=== PATIENT | female | born 1950 | race Caucasian/White ===

== ENCOUNTER 2018-12-21 14:25 | Inpatient (IN) | payer MEDICARE, OTHER ==
[2018-12-21] VITALS (10 sets, daily range): BP systolic 88–112; BP diastolic 49–78; BMI 19.5
[~2018-12-21] VITALS: Ht 162.6 cm; Wt 61.4 kg
--- NOTE | ~2018-12-21 | HEMODYNAMI ---
PATIENT:VENANCIO JIMENEZ MEDICAL RECORD: [id number] : 46 LOCATION:[facility] D.2305 ADMISSION DATE: 12/21/18 Generatedon:12/26/201814:15 Patient name: VENANCIO JIMENEZ Patient #: [id number] SSN: : 1950 Date of study: Page: Of Hemodynamic Procedure Report Patient Data Patient Demographics First Name: VENANCIO Gender: Female Last Name: BARBARA : 1950 Patient #: [id number] Age: 68 year(s) Race: Unknown Additional ID: [id number] Contact details Address: [address] [place] [address] State: [place] City: [facility] Zip code: [address] Admission Admission Data Admission Date: 12/21/2018 Admission Time: 16:27 Room #: D.2305 Height (in.): 63.78 BSA: 1.41 (m2) Height (cm.): 162 BMI: 16 (kg/m2) Weight (lbs.): 92.59 Weight (kg.): 42 Lab Results Lab Result Date: 12/26/2018 Lab Result Time: 0:00 Biochemistry Name Units Result Min Max BUN mg/dl 21 --(----)-* 7 18 Creatinine mg/dl 1 --(--*-)-- 0.6 1.3 CBC Name Units Result Min Max Hemoglobin g/dl 12.2 *-(----)-- 13.5 17.5 Procedure Procedure Types Cath Procedure Diagnostic Procedure LHC LHC w/Coronaries Procedure Description Procedure Staff Name Function Jose R Martinez MD Performing Physician Zahira Kennedy RT Monitor Moses Darden RN Nurse Kimber Villa RT Scrub Hemodynamics Rest BSA: 1.41 (m2) O2 Consumption: Estimated: 191.76 (ml/min) O2 Consumption indexed: Estimated:136 (ml/min/m) Pre Cath Intra NCS Post Cath Procedure Log Time Note 13:53:23 Patient Height : 63.78 inches 13:53:28 Patient Weight : 92.59 lbs 13:54:08 Lab Result : Creatinine 1 mg/dl 13:54:08 Lab Result : BUN 21 mg/dl 13:54:08 Lab Result : Hemoglobin 12.2 g/dl 13:54:31 Diagnostic Cath status Elective 13:54:34 Kimber Villa RT(R) sent for patient. Start room use. 13:54:35 Time tracking: Regular hours (M-F 7:00 - 5:00) 13:54:42 Plan of Care:Hemodynamics will remain stable., Cardiac rhythm will remain stable., Comfort level will be maintained., Respiratory function will remain adequate., Patient/ family verbilizes understanding of procedure., Procedure tolerated without complication., Recovers from procedure without complications.. Signature Audit [place] Stage Time Signature Unsigned Intra-Procedure 12/26/2018 Zahira Kennedy 2:15:06 PM RT(R) Signatures Monitor : Zahira Kennedy Signature : RT Date : Time : [facility] [address] [facility] [place] [address]
--- NOTE | ~2018-12-21 | HEMODYNAMI ---
PATIENT:VENANCIO JIMENEZ MEDICAL RECORD: [id number] : [birth year] [facility] D.2305 ADMISSION DATE: 12/21/18 Generatedon:12/26/201815:59 Patient name: VENANCIO JIMENEZ Patient #: [id number] SSN: : 1950 Date of study: 12/26/2018 Page: Of Hemodynamic Procedure Report Patient Data Patient Demographics Procedure consent was obtained First Name: VENANCIO Gender: Female Last Name: BARBARA : 1950 Patient #: [id number] Age: 68 year(s) Race: Unknown Additional ID: [id number] Contact details Address: [address] [place] [address] State: [place] City: [facility] Zip code: [address] Admission Admission Data Admission Date: 12/21/2018 Admission Time: 16:27 Room #: D.2305 Height (in.): 63.78 BSA: 1.41 (m2) Height (cm.): 162 BMI: 16 (kg/m2) Weight (lbs.): 92.59 Weight (kg.): 42 Lab Results Lab Result Date: 12/26/2018 Lab Result Time: 0:00 Biochemistry Name Units Result Min Max BUN mg/dl 21 --(----)-* 7 18 Creatinine mg/dl 1 --(--*-)-- 0.6 1.3 CBC Name Units Result Min Max Hemoglobin g/dl 12.2 *-(----)-- 13.5 17.5 Procedure Procedure Types Cath Procedure Diagnostic Procedure LHC LHC w/Coronaries Sedation Charges Moderate Sedation up to 15 minutes PCI Procedure Coronary Stent Coronary Stent Initial Procedure Description Procedure Date Procedure Date: 12/26/2018 Procedure Start Time: 15:36 Procedure End Time: 15:54 Procedure Staff Name Function Jose R Martinez MD Performing Physician Kimber Villa RT Monitor Yenifer Rangel RN Nurse Zahira Kennedy RT Scrub Procedure Data Cath Procedure Fluoroscopy Diagnostic fluoroscopy Total fluoroscopy Time: 3.7 time: 3.7 min min Diagnostic fluoroscopy Total fluoroscopy dose: dose: 101.64 mGy 101.64 mGy Contrast Material Contrast Material Type Amount (ml) Isovue 300 74 Entry Location Entry Primary Successful Side Size Upsize Upsize Entry Closure Succes sful Closure Location (Fr) 1 (Fr) 2 (Fr) Remarks Device Remarks Femoral Right 5 Fr 6 Fr Exoseal artery Short Estimated blood loss: 5 ml Diagnostic catheters Device Type Used For End Catheter Placement MULTIPACK Pigtail 5 Fr LV Angiography catheter MULTIPACK JL 4.0 5Fr Left Coronary catheter Angiography MULTIPACK 3DRC 5Fr Right Coronary catheter Angiography Procedure Complications No complications Procedure Medications Medication Administration Route Dosage 0.9% NaCl I.V. 100 ml/hr Oxygen etCO2 Nasal cannula 2 l/min Lidocaine 2% added to field 20 Heparin Flush Bag added to field 2 bags (1000units/500ml NS) Versed I.V. 2 mg Fentanyl I.V. 50 mcg Heparin Bolus I.V. 4000 units Integrilin (Bolus I.V. 4 ml 2mg/ml) Plavix P.O. 600 mg Hemodynamics Rest BSA: 1.41 (m2) O2 Consumption: Estimated: 131.37 (ml/min) O2 Consumption indexed : Estimated:93.17 (ml/min/m) Heart Rate: 73 (bpm) Pressure Samples Time Site Value (mmHg) Purpose Heart Use Rate(bpm) 15:39 LV 87/84,85 Snapshot 88 Snapshots Pre Cath Intra NCS Post Cath Vital Signs Time Heart Resp SPO2 etCO2 NIBP Rhythm Pain Sedation Rate (ipm) (%) (mmHg) (mmHg) Status Level (bpm) 15:32:10 73 13 97 23 116/61(89) NSR 0 (11) 10(A) , No pain 15:36:01 76 16 97 20 113/62(88) NSR 0 (11) 10(A) , No pain 15:40:05 82 18 98 22.2 117/69(95) NSR 0 (11) 9(A) , No pain 15:43:52 85 18 98 23 121/70(97) NSR 0 (11) 9(A) , No pain 15:47:40 86 17 98 21.5 114/70(94) NSR 0 (11) 9(A) , No pain 15:51:27 86 17 98 20 119/70(93) NSR 0 (11) 10(A) , No pain Medications Time Medication Route Dose Verified Delivered Reason Notes Effectiveness by by 15:38:11 0.9% NaCl I.V. 100 Jose R Yenifer used for ml/hr Michelle Rangel overlay plastician 15:38:18 Lidocaine 2% added 20ml Jose R Jose R for local to vial Michelle Martinez MD anesthetic field 15:38:18 Oxygen etCO2 2 Jose R Yenifer used for Nasal l/min Michelle Rangel procedure cannula RN 15:38:41 Heparin Flush added 2 Jose R Jose R used for Bag to bags Michelle Martinez MD procedure (1000units/500ml field NS) 15:39:16 Versed I.V. 2 mg Jose R Yenifer for sedation Michelle Rangel RN 15:39:28 Fentanyl I.V. 50 Jose R Yenifer for sedation mcg Michelle Rangel RN 15:42:42 Heparin Bolus I.V. 4000 Jose R Leesyla for verif ied units Michelle Rangel anticoagulation with Dr. MEKHI Martinez 15:43:23 Integrilin I.V. 4 ml Jose R Yenifer for waste d (Bolus 2mg/ml) Michelle Rangel anticoagulation 6mL RN 15:46:43 Plavix P.O. 600 Jose R Leesyla for mg Michelle Rangel antiplatelet RN therapy Procedure Log Time Note 14:45:29 Yenifer Rangel RN sent for patient. Start room use. 15:00:02 Plan of Care:Hemodynamics will remain stable., Cardiac rhythm will remain stable., Comfort level will be maintained., Respiratory function will remain adequate., Patient/ family verbilizes understanding of procedure., Procedure tolerated without complication., Recovers from procedure without complications.. 15:00:58 Time tracking: Regular hours (M-F 7:00 - 5:00) 15:15:24 Patient received from ICU to CCL 3 Alert and oriented. Tansferred to table in Supine position. 15:15:25 Correct patient and procedure confirmed by team. 15:15:25 Warm blankets applied, and mercedes hugger turned on for patient comfort. 15:15:26 Signed procedure consent form obtained from patient. 15:15:28 ECG and BP/O2 sat monitors applied to patient. 15:15:32 Vital chart was started 15:30:25 Patient Height : 63.78 inches 15:30:25 Patient Weight : 92.59 lbs 15:32:13 Baseline sample Acquired. 15:32:26 Rhythm: sinus rhythm 15:32:27 Full Disclosure recording started 15:32:30 H&P Date Dictated: 12/26/2018 Within 30 days and on chart.. 15:32:30 Pre-procedure instructions explained to patient. 15:32:31 Pre-op teaching completed and patient verbalized understanding. 15:32:41 Family in patients room. 15:32:43 Patient NPO since Midnight. 15:32:49 Is the patient allergic to Iodine/contrast media? No. 15:32:56 Is patient on blood thinner?No 15:33:13 Last dose of Plavix was 12/21/17. 15:33:16 Patient diabetic? Yes. 15:33:18 If diabetic: On Metformin? Unknown 15:33:20 Previous problem with sedation/anesthesia? No ? 15:33:23 Snore? Yes 15:33:24 Sleep apnea? No 15:33:25 Deviated septum? No 15:33:25 Opens mouth fully? Yes 15:33:26 Sticks out tongue? Yes 15:33:29 Airway obstruction? No ? 15:33:31 Dentures? No ? 15:33:33 Pre procedure: right dorsailis pedis pulse 1+ Palpable, but thready & weak; easily obliterated 15:33:47 Radial too small for access. 15:33:50 Patient pain scale 0/10 ?. 15:34:00 IV patent on arrival in left hand with 0.9% NaCl at O. 15:34:03 Lab results completed and on chart. 15:34:06 Right groin area was prepped with chlora-prep and draped in sterile fashion 15:34:07 Alarms reviewed by R. N. 15:34:07 Sharps counted by scrub and verified by R.N. 15:35:58 Physician arrived 15:35:58 --------ALL STOP TIME OUT------ 15:35:59 Final Timeout: patient, procedure, and site verified with staff and physician. All members of the team are in agreement. 15:36:02 Right groin site verified by team. 15:36:10 Physical assessment completed. ASA score P 2 - A patient with mild systemic disease as per Jose R Martinez MD. 15:36:14 Sedation plan: IV Moderate Sedation Medication:Versed, Fentanyl 15:36:17 Use device set Femoral Dx 15:36:18 ACIST Syringe (15471) opened to sterile field. 15:36:19 Bag Decanter (2002S) opened to sterile field. 15:36:19 Medline Cath Pack ([id number]) opened to sterile field. 15:36:19 DIAGNOSTIC WIRE .035 260cm J wire (772060) opened to sterile field. 15:36:21 ACIST Hand Control (54614) opened to sterile field. 15:36:21 ACIST Manifold (45352) opened to sterile field. 15:36:22 DIAGNOSTIC Multipack 5Fr catheter set (IQ8420) opened to sterile field. 15:36:22 Tegaderm 4 x 4 (1626W) opened to sterile field. 15:36:23 SHEATH 5FR [place] ([id number]) opened to sterile field. 15:36:26 Zero performed for pressure channel P1 15:36:53 Procedure started. 15:36:56 Local anesthetic to right femoral artery with Lidocaine 2% by Jose R Martinez MD.INITIAL ACCESS ONLY 15:37:05 A 5 Fr sheath was inserted into the Right Femoral artery 15:38:01 A MULTIPACK Pigtail 5 Fr catheter was advanced over the wire and used for LV Angiography. 15:38:11 0.9% NaCl 100 ml/hr I.V. was administered by Yenifer Rangel RN; used for procedure; 15:38:18 Lidocaine 2% 20ml vial added to field was administered by Jose R Martinez MD; for local anesthetic; 15:38:18 Oxygen 2 l/min etCO2 Nasal cannula was administered by Yenifer Rangel RN; used for procedure; 15:38:41 Heparin Flush Bag (1000units/500ml NS) 2 bags added to field was administered by Jose R Martinez MD; used for procedure; 15:39:16 Versed 2 mg I.V. was administered by Yenifer Rangel RN; for sedation; 15:39:28 Fentanyl 50 mcg I.V. was administered by Yenifer Rangel RN; for sedation; 15:39:29 LV hemodynamics recorded. 15:39:30 LV gram done using GARBER 15:39:32 Injector settings: Ml/sec: 5, Volume: 15, 15:39:38 EF : 50 % 15:40:16 Catheter removed. 15:40:20 A MULTIPACK JL 4.0 5Fr catheter was advanced over the wire and used for Left Coronary Angiography. 15:40:35 LCA angiography performed. 15:40:38 Injector settings: Ml/sec: 3, Volume: 6, 15:41:23 Catheter removed. 15:41:27 A MULTIPACK 3DRC 5Fr catheter was advanced over the wire and used for Right Coronary Angiography. 15:42:03 RCA angiography performed. 15:42:06 Injector settings: Ml/sec: 3, Volume: 6, 15:42:08 Catheter removed. 15:42:08 Proceeding to intervention. 15:42:42 Heparin Bolus 4000 units I.V. was administered by Yenifer Rangel RN; for anticoagulation; verified with Dr. Martinez 15:42:43 SHEATH 6FR [place] (NGZ243) opened to sterile field. 15:42:45 CHOICE PT Extra Support 182cm wire ([id number]) opened to sterile field. 15:42:47 INFLATOR Merit BasixCompak (TI3686) opened to sterile field. 15:42:48 GUIDE 6FR HS I catheter (LA6HSI) opened to sterile field. 15:43:23 Integrilin (Bolus 2mg/ml) 4 ml I.V. was administered by Yenifer Rangel RN; for anticoagulation; wasted 6mL 15:44:36 Sheath upsized to a 6 Fr Short. 15:44:44 6 Fr hs 1 guide catheter was inserted over the wire 15:44:51 choice pt wire advanced. 15:44:54 Wire advanced across lesion. 15:46:00 Inflate balloon Inflation number: 1 A EUPHORA 2.5 x 12 Balloon ([id number]) was prepped and advanced across the Prox RCA, then inflated to 9 PROMISE for 0:10 (min:sec). 15:46:05 Balloon removed over the wire. 15:46:43 Plavix 600 mg P.O. was administered by Yenifer Rangel RN; for antiplatelet therapy; 15:49:01 Place stent Inflation Number: 1 A INTEGRITY RX 2.5 x 26 stent ([id number]) was prepped and advanced across the Mid RCA. The stent was deployed at 13 PROMISE for 0:10 (min:sec). 15:50:13 Stent catheter was removed intact over wire. 15:50:52 Place stent Inflation Number: 2 A INTEGRITY RX 2.75 x 18 stent ([id number]) was prepped and advanced across the Prox RCA. The stent was deployed at 17 PROMISE for 0:10 (min:sec). 15:51:04 Inflation number: 3 The stent balloon was then re-inflated across the Prox RCA to 15 PROMISE for 0:10 (min:sec). 15:51:58 Stent catheter was removed intact over wire. 15:51:58 Wire removed. 15:51:59 Guide catheter removed. 15:52:14 EXOSEAL 6Fr (EX600) opened to sterile field. 15:52:35 Sheath removed intact; hemostasis achieved with Exoseal to the Right Femoral artery. 15:52:37 Procedure ended.(Physican Out) 15:52:55 Fluoroscopy time 03.70 minutes. 15:53:02 Fluoroscopy dose: 101.64 mGy 15:53:02 Flurop Dose total: 101.64 15:53:32 Contrast amount:Isovue 300 74ml. 15:53:34 Sharps counted by scrub and verified by R.N. 15:53:35 Insertion/operative site no bleeding no hematoma. 15:53:38 Post-op/insertion site Right Femoral artery dressed using a 4 x 4 and Tegaderm. 15:53:41 Post right femoral artery:stable 15:53:42 Post Procedure Pulses reassessed and unchanged 15:53:44 Post procedure rhythm: unchanged. 15:53:47 Estimated blood loss: 5 ml 15:53:49 Post procedure instruction explained to patient.Patient verbalizes understanding. 15:53:49 Patient needs reinforcement of post procedure teaching. 15:54:02 Procedure type changed to Cath procedure, Diagnostic procedure, LHC, LHC w/Coronaries, Sedation Charges, Moderate Sedation up to 15 minutes, PCI procedure, Coronary Stent, Coronary Stent Initial 15:54:03 Procedure and supply charges have been captured, reviewed, submitted and are correct. 15:54:07 Procedure Complication : No complications 15:54:09 Vital chart was stopped 15:54:10 See physician's report for complete and final results. 15:54:13 Report given to ICU. 15:54:16 Patient transfered to ICU with Stretcher. 15:54:19 Procedure ended. 15:54:19 Full Disclosure recording stopped 15:54:29 ACC-PCI Only Patient was given prescriptions, or instructed by Jose R Martinez MD to start/continue the following medications upon discharge: Plavix 15:54:30 End room use (Document Last) Intervention Summary Intervention Notes Time ActionType Lesion and Equipment Action# Pressure Duration Attributes Used 15:46:00 Inflate Prox RCA EUPHORA 2.5 1 9 00:10 balloon x 12 Balloon ([id number]) 15:49:01 Place stent Mid RCA INTEGRITY RX 1 13 00:10 2.5 x 26 stent ([id number]) 15:50:52 Place stent Prox RCA INTEGRITY RX 2 17 00:10 2.75 x 18 stent ([id number]) 15:51:04 Reinflate Prox RCA INTEGRITY RX 3 15 00:10 stent 2.75 x 18 balloon stent ([id number]) Device Usage Item Name Manufacture Quantity Catalog Number Hospital Part Current [facility] Lot# / Charge Number Stock Stock Serial# Code ACIST Acist 1 05685 688880 791459 380730 20 Syringe Medical (47636) Systems Inc Bag Decanter Microtek 1 2002S 911671 25859 925595 5 (2001S) Medical Inc. Medline Cath Medline 1 [id number] 013507 43871 443445 5 Pack ([id number]) DIAGNOSTIC [facility] [place] 1 641145 822623 968353 356727 30 WIRE .035 260cm J wire (128132) ACIST Hand Acist 1 99626 082982 068006 180528 5 Control Medical (77640) Systems Inc ACIST Acist 1 30849 518362 550251 781199 5 Manifold Medical (06822) Systems Inc DIAGNOSTIC Cardinal 1 EL7993 509923 96990 762637 30 Multipack Health 5Fr catheter set (IJ5403) Tegaderm 4 x 3M 1 1626W 319805 500431 603646 5 4 (1626W) SHEATH 5FR Terumo 1 APL882 318178 347573 732775 5 [facility] Anthony (MUJ444) MULTIPACK Cardinal 1 552085 5 Pigtail 5 Fr Health catheter MULTIPACK JL Cardinal 1 161485 5 4.0 5Fr Health catheter MULTIPACK Cardinal 1 592460 5 3DRC 5Fr Health catheter SHEATH 6FR Terumo 1 BDL449 625577 058814 739975 40 [place] Anthony (WJQ586) CHOICE PT [place] 1 [id number] 725759 156867 061779 5 Extra Scientific Support 182cm wire ([id number]) INFLATOR Merit 1 VW4766 641298 682876 164667 15 [facility] Medical BasixCompak (QN4903) GUIDE 6FR HS Medtronic 1 LA6HSI 947517 06550 406270 1 I catheter (LA6HSI) EUPHORA 2.5 Medtronic 1 [id number] 923270 626235 993220 5 [id number] x 12 Balloon (QJA7590E) INTEGRITY RX Medtronic 1 [id number] 623596 420852 055998 5 [id number] 2.5 x 26 stent ([id number]) INTEGRITY RX Medtronic 1 [id number] 700358 982115 231409 5 [id number] 2.75 x 18 stent ([id number]) EXOSEAL 6Fr Cardinal 1 EX600 469072 467067 093914 10 (EX600) Health Signature Audit [place] Stage Time Signature Unsigned Intra-Procedure 12/26/2018 Kimber Villa 3:59:41 PM RT(R) Signatures Monitor : Kimber Villa RT Signature : Date : Time : [facility] [address] [place] [address]
--- NOTE | ~2018-12-21 | HEMODYNAMI ---
PATIENT:VENANCIO JIMENEZ MEDICAL RECORD: [id number] : 46 LOCATION:D.MS [id number] ADMISSION DATE: 12/21/18 Generatedon:12/29/201812:31 Patient name: VENANCIO JIMENEZ Patient #: [id number] SSN: : 1950 Date of study: 12/29/2018 Page: Of Hemodynamic Procedure Report Patient Data Patient Demographics Procedure consent was obtained First Name: VENANCIO Gender: Female Last Name: BARBARA : 1950 Patient #: [id number] Age: 68 year(s) Race: Unknown Additional ID: [id number] Contact details Address: [address] [place] [address] State: [place] City: [facility] Zip code: [address] Admission Admission Data Admission Date: 12/21/2018 Admission Time: 16:27 Room #: [id number] Height (in.): 63.78 BSA: 1.41 (m2) Height (cm.): 162 BMI: 16 (kg/m2) Weight (lbs.): 92.59 Weight (kg.): 42 Lab Results Lab Result Date: 12/29/2018 Lab Result Time: 0:00 Biochemistry Name Units Result Min Max BUN mg/dl 9 --(*---)-- 7 18 Creatinine mg/dl 0.7 --(*---)-- 0.6 1.3 CBC Name Units Result Min Max Hemoglobin g/dl 9.5 *-(----)-- 13.5 17.5 Procedure Procedure Types Cath Procedure PCI Procedure Coronary Stent Coronary Stent Initial Coronary Stent Additional Peripheral Cath Diagnostic Procedure Landscape Maintenance Internship Peripheral Procedures Qgizv-Lxxewgt-Aaj-Off Procedure Description Procedure Date Procedure Date: 12/29/2018 Procedure Start Time: 12:05 Procedure End Time: 12:21 Procedure Staff Name Function Jasper Freire RT Monitor Moses Darden RN Nurse Jose R Martinez MD Performing Physician Zahira Kennedy RT Scrub Procedure Data Cath Procedure Fluoroscopy Diagnostic fluoroscopy Total fluoroscopy Time: 1.9 time: 1.9 min min Diagnostic fluoroscopy Total fluoroscopy dose: 71 dose: 71 mGy mGy Contrast Material Contrast Material Type Amount (ml) Isovue 300 70 Entry Location Entry Primary Successful Side Size Upsize Upsize Entry Closure Succes sful Closure Location (Fr) 1 (Fr) 2 (Fr) Remarks Device Remarks Femoral Right 6 Fr Exoseal artery Short Estimated blood loss: 10 ml Diagnostic catheters Device Type Used For End Catheter Placement DIAGNOSTIC Pigtail 5Fr Procedure catheter ([id number]) Procedure Complications No complications Procedure Medications Medication Administration Route Dosage Oxygen etCO2 Nasal cannula 2 l/min Lidocaine 2% added to field 20 Heparin Flush Bag added to field 2 bags (1000units/500ml NS) 0.9% NaCl I.V. 100 ml/hr Versed I.V. 1 mg Fentanyl I.V. 50 mcg Heparin Bolus I.V. 4000 units Hemodynamics Rest BSA: 1.41 (m2) HGB: 9.5 (g/dl) O2 Consumption: Estimated: 145.92 (ml/min) O2 Con sumption indexed: Estimated:103.49 (ml/min/m) Heart Rate: 100 (bpm) Snapshots Pre Cath Intra NCS Post Cath Vital Signs Time Heart Resp SPO2 etCO2 NIBP Rhythm Pain Sedation Rate (ipm) (%) (mmHg) (mmHg) Status Level (bpm) 11:56:07 98 21 39 0 Measuring NSR 0 (11) 10(A) , No pain 12:03:54 106 32 96 0 98/54(0) NSR 0 (11) 10(A) , No pain 12:09:13 103 27 95 0 96/50(0) NSR 0 (11) 9(A) , No pain 12:14:12 105 26 92 0 85/47(0) NSR 0 (11) 9(A) , No pain 12:20:35 109 28 94 0 90/49(0) NSR 0 (11) 10(A) , No pain 12:21:47 105 29 93 0 Time NSR 0 (11) 10(A) Exceeded , No pain 12:29:40 105 29 0 No Cuff NSR 0 (11) 10(A) , No pain 12:30:48 98 32 96 0 100/58(74) NSR 0 (11) 10(A) , No pain Medications Time Medication Route Dose Verified Delivered Reason Notes Effectiveness by by 12:00:59 Oxygen etCO2 2 Jose R Lopes used for Nasal l/min Michelle Darden RN procedure cannula 12:01:47 Lidocaine 2% added 20ml Jose R Odell for local to vial Michelle Martinez MD anesthetic field 12:01:54 Heparin Flush added 2 Jose R Grubbsrey used for Bag to bags Michelle Martinez MD procedure (1000units/500ml field NS) 12:02:03 0.9% NaCl I.V. 100 Jose R Lopes Per physician ml/hr Michelle Darden RN 12:02:12 Versed I.V. 1 mg Jose R Lopes for sedation Michelle Darden RN 12:02:18 Fentanyl I.V. 50 Jose R Walkerie for sedation mcg Michelle Darden RN 12:08:50 Heparin Bolus I.V. 4000 Jose R Lopes for verif ied units Michelle Darden RN anticoagulation with dr martinez Procedure Log Time Note 11:25:43 Moses Darden RN sent for patient. Start room use. 11:34:31 Patient Weight : 92.59 lbs 11:34:31 Patient Height : 63.78 inches 11:34:58 Time tracking: Regular hours (M-F 7:00 - 5:00) 11:35:02 Plan of Care:Hemodynamics will remain stable., Cardiac rhythm will remain stable., Comfort level will be maintained., Respiratory function will remain adequate., Patient/ family verbilizes understanding of procedure., Procedure tolerated without complication., Recovers from procedure without complications.. 11:36:23 Lab Result : Hemoglobin 9.5 g/dl :23 Lab Result : Creatinine 0.7 mg/dl :36:23 Lab Result : BUN 9 mg/dl 11:45:25 Patient received from ICU to CCL 3 Alert and oriented. Tansferred to table in Supine position. 11:45:26 Warm blankets applied, and mercedes hugger turned on for patient comfort. 11:45:27 Correct patient and procedure confirmed by team. 11:45:28 Signed procedure consent form obtained from patient. 11:45:30 ECG and BP/O2 sat monitors applied to patient. 11:54:18 Vital chart was started 11:54:20 Baseline sample Acquired. :54:25 Rhythm: sinus rhythm 11:54:26 Full Disclosure recording started 11:54:31 H&P Date Dictated: 12/29/2018 Within 30 days and on chart., New H&P dictated by physician.. 11:54:33 Pre-procedure instructions explained to patient. 11:54:34 Pre-op teaching completed and patient verbalized understanding. 11:54:37 Family in waiting room. 11:54:39 Patient NPO since Midnight. 11:54:41 Is the patient allergic to Iodine/contrast media? No. 11:54:44 Is patient on blood thinner?Yes 11:54:47 ACC The patient was administered the following blood thiners within the last 24 hours: ACCPlavix 11:59:28 Patient diabetic? No. 11:59:33 Snore? Yes 11:59:33 Previous problem with sedation/anesthesia? No ? 11:59:34 Sleep apnea? No 11:59:36 Deviated septum? No 11:59:43 Opens mouth fully? Yes 11:59:44 Sticks out tongue? Yes 11:59:46 Airway obstruction? No ? 11:59:49 Dentures? No ? 11:59:53 Pre procedure: left dorsailis pedis pulse 1+ Palpable, but thready & weak; easily obliterated 12:00:02 Patient pain scale 0/10 ?. 12:00:08 IV patent on arrival in right forearm with 0.9% NaCl at [facility]. 12:00:16 Lab results completed and on chart. 12:00:19 Left groin area was prepped with chlora-prep and draped in sterile fashion 12:00:20 Sharps counted by scrub and verified by R.N. 12:00:20 Alarms reviewed by R. N. 12:00:24 Use device set Radial Dx or PCI 12:00:26 Use device set TAUTH PCI 12:00:32 Tegaderm 4 x 4 ([id number]) opened to sterile field. 12:00:33 ACIST Manifold (53713) opened to sterile field. 12:00:34 ACIST Hand Control (70285) opened to sterile field. 12:00:42 Bag Decanter (2002S) opened to sterile field. 12:00:44 Medline Cath Pack ([id number]) opened to sterile field. 12:00:45 ACIST Syringe (03482) opened to sterile field. 12:00:46 DIAGNOSTIC WIRE .035 260cm J wire (456689) opened to sterile field. 12:00:59 Oxygen 2 l/min etCO2 Nasal cannula was administered by Moses Darden RN; used for procedure; 12:01:19 INFLATOR Merit Miguelangel (ZY9436) opened to sterile field. 12:01:22 CHOICE PT Extra Support 182cm wire ([id number]) opened to sterile field. 12:01:25 SHEATH 6FR [place] (WEI025) opened to sterile field. 12::39 Final Timeout: patient, procedure, and site verified with staff and physician. All members of the team are in agreement. ::39 --------ALL STOP TIME OUT------ 12::41 Left groin site verified by team. 12::44 Physical assessment completed. ASA score P 2 - A patient with mild systemic disease as per Jose R Martinez MD. 12::47 Sedation plan: IV Moderate Sedation Medication:Versed, Fentanyl 12::47 Lidocaine 2% 20ml vial added to field was administered by Jose R Martinez MD; for local anesthetic; 12:01:54 Heparin Flush Bag (1000units/500ml NS) 2 bags added to field was administered by Jose R Martinez MD; used for procedure; 12:02:03 0.9% NaCl 100 ml/hr I.V. was administered by Moses Darden RN; Per physician; 12:02:12 Versed 1 mg I.V. was administered by Moses Darden RN; for sedation; 12:02:18 Fentanyl 50 mcg I.V. was administered by Moses Darden RN; for sedation; 12:04:03 IV Extension Set opened to sterile field. 12:05:35 Procedure started. 12:05:42 Local anesthetic to left femerol artery with Lidocaine 2% by Jose R Martinez MD.INITIAL ACCESS ONLY 12:05:43 GUIDE 6FR XBLAD 3.5 catheter ([id number]) opened to sterile field. 12:08:21 A 6 Fr Short sheath was inserted into the Right Femoral artery 12:08:44 6 Fr XBLAD 3.5 guide catheter was inserted over the wire 12:08:50 Heparin Bolus 4000 units I.V. was administered by Moses Darden RN; for anticoagulation; verified with dr martinez 12:09:36 CPTXS wire advanced. 12:10:16 Wire advanced across lesion. 12:10:32 Place stent Inflation Number: 1 A HSELLIE RX 2.25 x 15 stent ([id number]) was prepped and advanced across the 1st Diag. The stent was deployed at 11 PROMISE for 0:10 (min:sec). 12:11:13 Wire redirected to LAD. 12:11:28 Stent catheter was removed intact over wire. 12:12:34 Place stent Inflation Number: 1 A SHELLIE RX 2.75 x 18 stent ([id number]) was prepped and advanced across the Prox LAD. The stent was deployed at 13 PROMISE for 0:10 (min:sec). 12:12:43 Stent catheter was removed intact over wire. 12:12:48 Wire removed. 12:12:49 Guide catheter removed. 12:13:42 A DIAGNOSTIC Pigtail 5Fr catheter ([id number]) was advanced over the wire and used for Procedure. 12:15:22 Abdominal Aortagram was performed. 12:15:25 Right leg runoff performed. 12:15:26 Left leg runoff performed. 12:16:23 Catheter removed. 12:16:26 Sheath removed intact; hemostasis achieved with Exoseal to the Right Femoral artery. 12:16:38 Procedure ended.(Physican Out) 12:17:14 Fluoroscopy time 01.90 minutes. 12:17:19 Fluoroscopy dose: 71 mGy 12:17:19 Flurop Dose total: 71 12:17:22 Contrast amount:Isovue 300 70ml. 12:19:31 Sharps counted by scrub and verified by R.N. 12:19:32 Insertion/operative site no bleeding no hematoma. 12:19:34 Post Procedure Pulses reassessed and unchanged 12:19:37 Post-op/insertion site Left Femoral artery dressed using a 4 x 4 and Tegaderm. 12:19:45 Post-procedure physical assessment completed. ASA score P 2 - A patient with mild systemic disease as per Jose R Martinez MD. 12:19:48 Post procedure rhythm: unchanged. 12:19:51 Estimated blood loss: 10 ml 12:19:52 Post procedure instruction explained to patient.Patient verbalizes understanding. 12:19:53 Patient needs reinforcement of post procedure teaching. 12:19:59 Procedure type changed to Cath procedure, PCI procedure, Coronary Stent, Coronary Stent Initial, Coronary Stent Additional, Peripheral Cath Diagnostic Procedure, Landscape Maintenance Internship Peripheral Procedures, Xahhp-Svybkxj-Fic-Off 12:20:00 Procedure and supply charges have been captured, reviewed, submitted and are correct. 12:20:03 Procedure Complication : No complications 12:20:45 EXOSEAL 6Fr (EX600) opened to sterile field. 12:21:12 Vital chart was stopped 12:21:13 See physician's report for complete and final results. 12:21:30 Report given to [facility]. 12:21:35 Patient transfered to [facility] with Bed. 12:21:37 Full Disclosure recording stopped 12:21:37 Procedure ended. 12:23:46 End room use (Document Last) Intervention Summary Intervention Notes Time ActionType Lesion and Equipment Used Action# Pressure Duration Attributes 12:10:32 Place stent 1st Diag SHELLIE RX 2.25 x 1 11 00:10 15 stent ([id number]) 12:12:34 Place stent Prox LAD SHELLIE RX 2.75 x 1 13 00:10 18 stent ([id number]) Device Usage Item Name Manufacture Quantity Catalog Number Hospital Part Current M inimal Lot# / Charge Number Stock Stock Serial# Code Tegaderm 4 x 4 3M 1 [id number] 850234 182540 524473 5 (1626W) ACIST Manifold Acist 1 05381 202434 170717 007770 5 (80805) Medical Systems Inc ACIST Hand Acist 1 16153 138914 089516 530553 5 Control Medical (92403) Systems Inc Bag Decanter Microtek 1 2001S 157090 57108 692869 5 (2001S) Medical Inc. Medline Cath Medline 1 [id number] 439439 64209 576977 5 Pack ([id number]) ACIST Syringe Acist 1 10690 949491 640077 390772 2 0 (19378) Medical Systems Inc DIAGNOSTIC [place] 1 967472 126768 539965 470019 3 0 WIRE .035 260cm J wire (016834) INFLATOR Merit Merit 1 VP7302 938908 123267 235697 1 5 Minggl (UD2378) CHOICE PT Fine 1 [id number] 591592 061957 206456 5 Extra Support Scientific 182cm wire (1935366J5) SHEATH 6FR Terumo 1 BNN717 510611 120159 075413 4 0 [place] (RFQ198) IV Extension Hospira 1 88400-54 215762 77182 725000 5 Set GUIDE 6FR Cardinal 1 [id number] 266526 922137 539418 1 0 XBLAD 3.5 Health catheter ([id number]) SHELLIE RX 2.25 x Medtronic 1 [id number] 866573 6542953 430654 5 [id number] 15 stent ([id number]) SHELLIE RX 2.75 x Medtronic 1 [id number] 229814 8253173 953637 5 [id number] 18 stent ([id number]) DIAGNOSTIC Cardinal 1 [id number] 686706 718708 262920 5 Pigtail 5Fr Health catheter (686936T) EXOSEAL 6Fr Cardinal 1 EX600 132141 233385 002466 1 0 (EX600) Health Signature Audit Wyatt Stage Time Signature Unsigned Intra-Procedure 12/29/2018 Jasper Freire RT(R) 12:24:35 PM RT(R) 12/29/2018 12:27:20 PM Intra-Procedure 12/29/2018 Jasper Freire 12:31:15 PM RT(R) Signatures Monitor : Jasper Freire RT Signature : Date : Time : [facility] [address] [place] [address]
[2018-12-21] MEDS ORDERED: TOPROL XL25 MG PO (14:31)
[2018-12-21] MEDS ORDERED: PLAVIX75 MG PO (14:31)
[2018-12-21] MEDS ORDERED: LEXAPRO10 MG PO (14:31)
[2018-12-21] MEDS ORDERED: MIRAPEX0.5 MG PO (14:31)
[2018-12-21] MEDS ORDERED: SEROQUEL25 MG PO (14:32)
[2018-12-21] MEDS ORDERED: GLUCOPHAGE500 MG PO (14:32)
[2018-12-21] MEDS ORDERED: APIDRA SOL100 UNIT/1 SQ ×2 (14:32→14:33)
[2018-12-21] MEDS ORDERED: SYNTHROID50 MCG PO (14:32)
[2018-12-21] MEDS ORDERED: BAYER CHEWABLE81 MG PO (14:34)
[2018-12-21] MEDS ORDERED: STOOL SOFTENER (14:34)
[2018-12-21] MEDS ORDERED: LEVEMIR IN100 UNITS/ SC (14:34)
[2018-12-21 15:25] LABS: APTT 26.1 SECONDS (22.8-39.4); INR 1.33 (0.85-1.17)
[2018-12-21 15:28] LABS: ALBUMIN 3.2 g/dL (3.4-5.0); ALKALINE PHOSPHATASE 122 U/L (46-116); ALT (SGPT) 30 U/L (10-68); BILIRUBIN - TOTAL 0.46 mg/dL (0.2-1.3); CALCIUM 7.6 mg/dL (8.5-10.1); CARBON DIOXIDE 12.9 mmol/L (21.0-32.0); CHLORIDE - SERUM 93 mmol/L (98-107); POTASSIUM - SERUM 5.9 mmol/L (3.5-5.1); PROTEIN - SERUM 6.4 g/dL (6.4-8.2); SODIUM 134 mmol/L (136-145); UREA NITROGEN 77 mg/dL (7-18); eGFR NON AFRICAN AMERICAN 16 mL/min (90-120)
[2018-12-21 15:37] LABS: APPEARANCE CLOUDY (CLEAR); BILIRUBIN NEGATIVE (NEGATIVE); COLOR STRAW (YELLOW); GLUCOSE 1000 mg/dL (NEGATIVE); KETONE MODERATE mg/dL (NEGATIVE); NITRITE NEGATIVE (NEGATIVE); PROTEIN TRACE mg/dL (NEGATIVE); SPECIFIC GRAVITY 1.015 (1.005-1.020); UROBILINOGEN NORMAL (NORMAL)
[2018-12-21 15:38] LABS: WHITE CELLS - URINE 0-5 /hpf (0-5)
[2018-12-21 15:39] LABS: AMORPHOUS SEDIMENT >1+ /lpf (NONE SEEN); BACTERIA FEW /hpf (NONE SEEN); RED CELLS - URINE OCC /hpf (0-5)
[2018-12-21 15:44] LABS: CALC OSMOLALITY 344 mosm/kg (275-300); GLUCOSE 1070 mg/dL (74-106)
[2018-12-21 15:54] LABS: BASOPHILS 0.3 % (0-2); EOSINOPHILS 0.2 % (0-7); HEMATOCRIT 34.1 % (36.0-48.0); HEMOGLOBIN 10.4 g/dL (12-16); IMMATURE GRANULOCYTES 3.5 % (0-5); LYMPHOCYTES 10.3 % (15-50); MCH 28.4 pg (26.0-34.0); MCHC 30.5 g/dL (31.0-37.0); MCV 93.2 fL (80.0-100.0); MEAN PLATELET VOLUME 9.4 fL (7.4-10.4); MONOCYTES 2.7 % (2-11); PLATELET COUNT 263 10x3/uL (130-400); RBC 3.66 10x6/uL (4.00-5.40); RDW 13.9 % (11.5-14.5); WBC 19.5 10x3/uL (4.8-10.8)
[2018-12-21 16:48] LABS: CKMB 83.9 U/L (0.0-3.6); CREATINE KINASE 2568 UL (21-215); PRO BNP 11634 pg/mL (0-125)
--- NOTE | 2018-12-21 17:53 | MORECARE ---
CASE MANAGEMENT DISCHARGE SUMMARY PATIENT: VENANCIO CONDE UNIT: [id number] ADM DATE: 12/21/18 AGE: 68 : 48 SEX: F ROOM/BED: D.2305 AUTHOR: ANGELA STERLING PHYSICIAN: REFERRING PHYSICIAN: CANDACE NEWBERRY MD DATE OF SERVICE: 12/21/18 Discharge Plan Patient Name: VENANCIO CONDE [facility] [facility] 1950 Planned Disposition: Home Hlth Svc w Plan Readm Anticipated Discharge Date: 12/26/18 Discharge Date: Expected LOS: 5 Initial Reviewer: [email or web address] Initial Review Date: 12/21/2018 Generated: 12/21/18 6:53 pm DCPIA - Discharge Planning Initial Assessment Updated by [email or web address]: Michelle Prescott on 12/21/18 5:48 pm * Is the patient Alert and Oriented? No * PCP Dr. Bryan * Pharmacy [facility] on [facility] * Preadmission Environment Home with Family * ADLs Partial Dependent * Partial ADLs (Assistance needed) Ambulation Bathing Dressing Medication Management Toileting Transfers * Equipment Bedside Commode Cane Glucometer Rolling Walker Wheelchair * List name and contact numbers for known caregivers / representatives who currently or will assist patient after discharge: Eyad Conde - spouse POA - [phone] * Verbal permission to speak to the caregivers and representatives has been obtained from the patient. Yes * Community resources currently utilized Home Health * Please name any agencies selected above. [facility] * Additional services required to return to the preadmission environment? No * Can the patient safely return to the preadmission environment? Yes * Has this patient been hospitalized within the prior 30 days at any hospital? No Patient Name: VENANCIO CONDE Page [id number] at 1753 All edits/amendments must be made on the electronic document DICTATION DATE: 12/21/181751 PARAFFINER: DARIO 12/21/181751 RPT#: [id number] DC DATE: STATUS: ADM IN [facility] [address] [place] [address] END OF REPORT
[2018-12-21 18:00] LABS: KETONE - SERUM MODERATE mg/dL (NEGATIVE)
--- NOTE | 2018-12-21 18:01 | MORECARE ---
CASE MANAGEMENT DISCHARGE SUMMARY PATIENT: VENANCIO CONDE UNIT: [id number] ADM DATE: 12/21/18 AGE: 68 : 48 SEX: F ROOM/BED: D.2136 AUTHOR: ANGELA STERLING PHYSICIAN: REFERRING PHYSICIAN: CANDACE NEWBERRY MD DATE OF SERVICE: 12/21/18 Discharge Plan Patient Name: VENANCIO CONDE Facility: [facility]:[place] : 1950 Planned Disposition: Home Hlth Svc w Plan Readm Anticipated Discharge Date: 12/26/18 Discharge Date: Expected LOS: 5 Initial Reviewer: [email or web address] Initial Review Date: 12/21/2018 Generated: 12/21/18 7:00 pm DCP- Discharge Planning Updated by [email or web address]: Michelle Prescott on 12/21/18 4:[address] Patient Name: VENANCIO CONDE Admission Status: ER Accout number: [id number] Admission Date: 12-21-2018 : 1950 Admission Diagnosis: Attending: CANDACE NEWBERRY Current LOS: 1 Anticipated DC Date: 12-26-2018 Planned Disposition: Home Hlth Svc w Plan Readm Primary Insurance: MEDICARE A & B Discharge Planning Comments: CM met with patient who is disoriented and her and Eyad ANDERSEN to complete initial dc planning assessment. CM educated him on the CM role and verbal consent given by him to complete assessment. Patient lives at home with her who is her primary caregiver. 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 He is not able to leave her alone and provides 24/7 care for her. He went out of town Saturday and took her to a private halfway to care for her. When he got there this morning to pick her up he reports she was hunched over in her wheelchair and he knew she was in trouble. The caregiver at the home reports she had gotten in to some pastries and ate a lot of them before they realized it. She was found in to be in DKA in the ER and admitted to the ICU. At discharge he plans to take the patient home and feels this is a safe discharge. She has [facility] at home as well. He reports he is not interested in her going to any type of rehab facility as they don't monitor her or give her the medications she requires on time and she always ends up in trouble with her diabetes under other people's care. He denied known discharge needs at this time. CM will continue to follow and will assist as needed with dc plans/needs. Glove Machine Operator: Michelle Prescott RN, [facility] DCPIA - Discharge Planning Initial Assessment Updated by [email or web address]: Michelle Prescott on 12/21/18 5:48 pm * Is the patient Alert and Oriented? No * PCP Dr. Bryan * Pharmacy [facility] on [address] * Preadmission Environment Home with Family * ADLs Partial Dependent * Partial ADLs (Assistance needed) Ambulation Bathing Dressing Medication Management Toileting Transfers * Equipment Bedside Commode Cane Glucometer Rolling Walker Wheelchair * List name and contact numbers for known caregivers / representatives who currently or will assist patient after discharge: Eyad Conde - spouse POA - [phone] * Verbal permission to speak to the caregivers and representatives has been obtained from the patient. Yes * Community resources currently utilized Home Health * Please name any agencies selected above. [facility] * Additional services required to return to the preadmission environment? No * Can the patient safely return to the preadmission environment? Yes * Has this patient been hospitalized within the prior 30 days at any hospital? No Last DP export: 12/21/18 4:53 p Patient Name: VENANCIO CONDE Page [phone] at 1801 All edits/amendments must be made on the electronic document DICTATION DATE: 12/21/18 1800 SUPERVISOR CARBON PAPER COATING: DM 12/21/18 1800 RPT#: [id number] DC DATE: STATUS: ADM IN [facility] [address] [place] [address] END OF REPORT
[2018-12-21 18:38] LABS: PHOSPHOROUS 4.2 mg/dL (2.5-4.9)
[2018-12-21 18:46] LABS: MAGNESIUM - SERUM 1.9 mg/dL (1.8-2.4)
[2018-12-21 19:54] LABS: CKMB 83.9 U/L (0.0-3.6)
[2018-12-21 19:57] LABS: CREATINE KINASE 2609 UL (21-215)
[2018-12-21 19:58] LABS: TROPONIN-I 9.898 ng/mL (0.000-0.060)
[2018-12-21 20:45] LABS: CALCIUM 7.6 mg/dL (8.5-10.1); CHLORIDE - SERUM 102 mmol/L (98-107); CREATININE - SERUM 2.6 mg/dL (0.6-1.3); SODIUM 140 mmol/L (136-145); UREA NITROGEN 75 mg/dL (7-18); eGFR NON AFRICAN AMERICAN 19 mL/min (90-120)
[2018-12-21 20:46] LABS: CALC OSMOLALITY 331 mosm/kg (275-300); GLUCOSE 655 mg/dL (74-106); MAGNESIUM - SERUM 2.5 mg/dL (1.8-2.4); POTASSIUM - SERUM 4.2 mmol/L (3.5-5.1)
[2018-12-21 20:53] LABS: KETONE - SERUM MODERATE mg/dL (NEGATIVE)
[2018-12-22] VITALS (19 sets, daily range): BP systolic 74–116; BP diastolic 33–74; Ht 162.6 cm; Wt 61.4 kg
[2018-12-22 01:12] LABS: HEMATOCRIT 30.1 % (36.0-48.0); HEMOGLOBIN 10.1 g/dL (12-16)
[2018-12-22 01:43] LABS: CKMB 106.6 U/L (0.0-3.6); CREATINE KINASE 3421 UL (21-215)
[2018-12-22 01:44] LABS: TROPONIN-I 24.927 ng/mL (0.000-0.060)
[2018-12-22 08:35] LABS: KETONE - SERUM SMALL mg/dL (NEGATIVE)
[2018-12-22 08:42] LABS: % SATURATION 9 % (15-55); IRON 17 ug/dl (35-150); TOTAL IRON BIND CAPACITY 185 ug/dl (260-445); UNSAT IRON BIND CAPACITY 168 ug/dl (150-375)
[2018-12-22 08:48] LABS: HEMATOCRIT 30.9 % (36.0-48.0); HEMOGLOBIN 10.5 g/dL (12-16); MCH 28.3 pg (26.0-34.0); MCV 83.3 fL (80.0-100.0); MEAN PLATELET VOLUME 9.2 fL (7.4-10.4); PLATELET COUNT 209 10x3/uL (130-400); RBC 3.71 10x6/uL (4.00-5.40); RDW 13.5 % (11.5-14.5); WBC 22.7 10x3/uL (4.8-10.8)
[2018-12-22 09:03] LABS: ALBUMIN 2.8 g/dL (3.4-5.0); ALKALINE PHOSPHATASE 94 U/L (46-116); BILIRUBIN - TOTAL 0.28 mg/dL (0.2-1.3); CALCIUM 7.4 mg/dL (8.5-10.1); CHLORIDE - SERUM 112 mmol/L (98-107); CKMB 88.7 U/L (0.0-3.6); CREATININE - SERUM 2.1 mg/dL (0.6-1.3); FERRITIN 408 ng/mL (3-244); LDH 400 U/L (81-234); PROTEIN - SERUM 5.6 g/dL (6.4-8.2); SODIUM 146 mmol/L (136-145); UREA NITROGEN 65 mg/dL (7-18); eGFR NON AFRICAN AMERICAN 25 mL/min (90-120)
[2018-12-22 09:04] LABS: ALT (SGPT) 41 U/L (10-68); CALC OSMOLALITY 312 mosm/kg (275-300); CARBON DIOXIDE 20.7 mmol/L (21.0-32.0); CREATINE KINASE 3818 UL (21-215); GLUCOSE 148 mg/dL (74-106); POTASSIUM - SERUM 3.4 mmol/L (3.5-5.1); TROPONIN-I 27.482 ng/mL (0.000-0.060)
[2018-12-22 09:44] LABS: LYMPHOCYTES 3 % (15-50); MONOCYTES 6 % (2-11); NEUTROPHILS 79 % (40-80); PLATELET ESTIMATE NORMAL; ROULEAUX OCC
[2018-12-22 12:48] LABS: HEMATOCRIT 32.2 % (36.0-48.0); HEMOGLOBIN 10.8 g/dL (12-16)
[2018-12-22 13:03] LABS: CALCIUM 7.4 mg/dL (8.5-10.1); CARBON DIOXIDE 19.4 mmol/L (21.0-32.0); CREATININE - SERUM 1.9 mg/dL (0.6-1.3); MAGNESIUM - SERUM 1.9 mg/dL (1.8-2.4); POTASSIUM - SERUM 3.4 mmol/L (3.5-5.1)
[2018-12-22 14:19] LABS: APPEARANCE SL CLDY (CLEAR); BILIRUBIN NEGATIVE (NEGATIVE); COLOR YELLOW (YELLOW); GLUCOSE NEGATIVE (NEGATIVE); KETONE NEGATIVE (NEGATIVE); NITRITE NEGATIVE (NEGATIVE); PROTEIN NEGATIVE (NEGATIVE); UROBILINOGEN NORMAL (NORMAL)
[2018-12-22 14:20] LABS: BACTERIA MANY /hpf (NONE SEEN); EPITHELIAL CELLS 0-5 /hpf (0-5); MUCUS <1+ /lpf (NONE SEEN)
[2018-12-22 18:27] LABS: HEMATOCRIT 36.7 % (36.0-48.0); HEMOGLOBIN 12.6 g/dL (12-16)
[2018-12-22 18:56] LABS: ANION GAP 18.3 mmol/L (8-16); CALCIUM 8.1 mg/dL (8.5-10.1); CREATININE - SERUM 1.7 mg/dL (0.6-1.3); POTASSIUM - SERUM 3.3 mmol/L (3.5-5.1)
[2018-12-23] VITALS (23 sets, daily range): BP systolic 95–135; BP diastolic 53–89
[2018-12-23 04:50] LABS: BASOPHILS 0.1 % (0-2); EOSINOPHILS 0 % (0-7); HEMATOCRIT 38.5 % (36.0-48.0); HEMOGLOBIN 12.9 g/dL (12-16); IMMATURE GRANULOCYTES 0.4 % (0-5); LYMPHOCYTES 4.5 % (15-50); MCHC 33.5 g/dL (31.0-37.0); MCV 83.7 fL (80.0-100.0); MEAN PLATELET VOLUME 9.3 fL (7.4-10.4); MONOCYTES 4.7 % (2-11); NEUTROPHILS 90.3 % (40-80)
[2018-12-23 04:52] LABS: PLATELET COUNT 160 10x3/uL (130-400)
[2018-12-23 05:34] LABS: BILIRUBIN - TOTAL 0.63 mg/dL (0.2-1.3); CALCIUM 8.4 mg/dL (8.5-10.1); CARBON DIOXIDE 25.2 mmol/L (21.0-32.0); CREATININE - SERUM 1.5 mg/dL (0.6-1.3); MAGNESIUM - SERUM 1.8 mg/dL (1.8-2.4); PROTEIN - SERUM 6.3 g/dL (6.4-8.2)
[2018-12-23 05:37] LABS: ANION GAP 15.7 mmol/L (8-16); PHOSPHOROUS 2.9 mg/dL (2.5-4.9); POTASSIUM - SERUM 3.9 mmol/L (3.5-5.1)
[2018-12-23 08:16] LABS: FOLATE (FOLIC ACID) - SERUM 4.1 ng/mL (>3.0)
--- NOTE | 2018-12-23 10:23 | EC ---
PATIENT:VENANCIO JIMENEZ DATE OF SERVICE: 12/21/18 SEX: F MEDICAL RECORD: [id number] DATE OF : [birth year] LOCATION:D.[facility] D.230 AGE OF PATIENT: 68 ADMISSION DATE: 12/21/18 REFERRING PHYSICIAN: INTERPRETING PHYSICIAN: HUY MARTINEZ MD ECHOCARDIOGRAM REPORT ECHO CHARGES 4 ECHO COMPLETE Date: 12/21/18 CLINICAL DIAGNOSIS: ELEVATED TROPONIN, BNP ECHOCARDIOGRAPHIC MEASUREMENTS (adult normal given) AC root (d.<3.7cm) 2.7 cm LV Septum d (<1.2 cm> 1.1 cm Valve Excursion 1.3 cm LV Septum (systole) 1.4 cm Left Atria (s.<4.0cm> 3.4 cm LVPW d(<1.2cm) 0.8 cm RV (d.<2.3cm) 2.5 cm LVPW (sytole) 1.0 cm LV diastole(<5.6CM) 3.9 cm MV E-F(>70mm/sec) cm LV systole 2.9 cm LVOT Diameter 1.4 cm MV exc.(>10mm) cm Est.ejection fraction (50-75%) % DOPPLER: LVIT cm/sec A 80 cm/sec E 70 cm/sec LA cm/sec RVSP 29.5 mmHg LVOT 106 cm/sec AOP1/2T m/s Asc. Ao 137 cm/sec RVOT 52 cm/sec RA cm/sec PA 76 cm/sec AV Gradient Peak 7.5 mmHg AV Mean 2.9 mmHg AV Area 1.2 cm MV Gradient Peak 3.4 mmHg MV Mean 2.1 mmHg MV Area cm COMMENTS: Riding Instructor: Dagoberto MORGAN Ice Bag Assembler: 1 Dr. Martinez TAPE# PACS Pericardial Effusion N DATE OF SERVICE: 12/21/2018 PROCEDURE: Echocardiogram. FINDINGS: 1. Left ventricular chamber size is within normal limits. Left ventricular systolic function is normal. Overall ejection fraction estimated at 50%. 2. Left atrium, right atrium, and right ventricle chamber sizes are within normal limits. 3. Valvular structures have normal structure and motion. ECHOCARDIOGRAM REPORT [id number] VENANCIO JIMENEZ 4. Doppler interrogation reveals trace mitral regurgitation, mild tricuspid regurgitation, no other valvular insufficiency or stenosis. Pulmonary systolic pressure is estimated 30 mmHg. 5. No evidence of pericardial effusion or left ventricular thrombus. TRANSINT:[id number] Voice Confirmation ID: [id number] DOCUMENT ID: [id number] HUY MARTINEZ MD at 1023 CC: [id number] DICTATION DATE: 12/22/18 1146 SWEDISH MASSEUSE: 12/22/18 1308 ADM IN [facility] [address] [place] [address]
[2018-12-24] VITALS (24 sets, daily range): BP systolic 98–138; BP diastolic 32–88
[2018-12-24 04:52] LABS: BASOPHILS 0.1 % (0-2); EOSINOPHILS 0 % (0-7); HEMOGLOBIN 12.9 g/dL (12-16); IMMATURE GRANULOCYTES 0.5 % (0-5); LYMPHOCYTES 3.1 % (15-50); MCH 28.2 pg (26.0-34.0); MCHC 33.1 g/dL (31.0-37.0); MCV 85.2 fL (80.0-100.0); MEAN PLATELET VOLUME 9.7 fL (7.4-10.4); MONOCYTES 3.6 % (2-11); NEUTROPHILS 92.7 % (40-80); PLATELET COUNT 136 10x3/uL (130-400); RBC 4.58 10x6/uL (4.00-5.40); RDW 14.1 % (11.5-14.5)
[2018-12-24 05:12] LABS: WBC 15.4 10x3/uL (4.8-10.8)
[2018-12-24 05:20] LABS: ALBUMIN 2.6 g/dL (3.4-5.0); BILIRUBIN - TOTAL 0.86 mg/dL (0.2-1.3); CALCIUM 8.5 mg/dL (8.5-10.1); CARBON DIOXIDE 28.9 mmol/L (21.0-32.0); CREATININE - SERUM 1.2 mg/dL (0.6-1.3); PROTEIN - SERUM 6.5 g/dL (6.4-8.2)
[2018-12-24 05:22] LABS: POTASSIUM - SERUM 2.9 mmol/L (3.5-5.1)
[2018-12-25] VITALS (21 sets, daily range): BP systolic 101–150; BP diastolic 58–105
[2018-12-25 04:25] LABS: BASOPHILS 0.1 % (0-2); EOSINOPHILS 0 % (0-7); HEMATOCRIT 37.6 % (36.0-48.0); HEMOGLOBIN 12.2 g/dL (12-16); IMMATURE GRANULOCYTES 0.8 % (0-5); LYMPHOCYTES 4.1 % (15-50); MCH 28.2 pg (26.0-34.0); MCHC 32.4 g/dL (31.0-37.0); MEAN PLATELET VOLUME 10.2 fL (7.4-10.4); MONOCYTES 5.4 % (2-11); NEUTROPHILS 89.6 % (40-80); PLATELET COUNT 130 10x3/uL (130-400); RBC 4.32 10x6/uL (4.00-5.40); RDW 14.2 % (11.5-14.5); WBC 13.1 10x3/uL (4.8-10.8)
[2018-12-25 04:42] LABS: ALBUMIN 2.2 g/dL (3.4-5.0); ANION GAP 12.2 mmol/L (8-16); BILIRUBIN - TOTAL 0.51 mg/dL (0.2-1.3); CALCIUM 8.7 mg/dL (8.5-10.1); CARBON DIOXIDE 27.2 mmol/L (21.0-32.0); POTASSIUM - SERUM 3.4 mmol/L (3.5-5.1); PROTEIN - SERUM 6.2 g/dL (6.4-8.2)
[2018-12-26] VITALS (20 sets, daily range): BP systolic 102–146; BP diastolic 56–98
[2018-12-26 03:55] LABS: BASOPHILS 0.2 % (0-2); EOSINOPHILS 2.2 % (0-7); HEMATOCRIT 35.2 % (36.0-48.0); HEMOGLOBIN 10.9 g/dL (12-16); IMMATURE GRANULOCYTES 0.8 % (0-5); LYMPHOCYTES 5.6 % (15-50); MCH 27.7 pg (26.0-34.0); MEAN PLATELET VOLUME 10.3 fL (7.4-10.4); MONOCYTES 9.2 % (2-11); PLATELET COUNT 131 10x3/uL (130-400); RBC 3.93 10x6/uL (4.00-5.40); RDW 13.8 % (11.5-14.5)
[2018-12-26 04:02] LABS: MCV 89.6 fL (80.0-100.0); WBC 9.8 10x3/uL (4.8-10.8)
[2018-12-26 04:18] LABS: ANION GAP 9.9 mmol/L (8-16); BILIRUBIN - TOTAL 0.45 mg/dL (0.2-1.3); CALCIUM 8.6 mg/dL (8.5-10.1); CARBON DIOXIDE 30.2 mmol/L (21.0-32.0); POTASSIUM - SERUM 3.1 mmol/L (3.5-5.1)
[2018-12-26 13:38] LABS: MEAN PLATELET VOLUME 9.8 fL (7.4-10.4); NEUTROPHILS 79.5 % (40-80)
[2018-12-26 14:24] LABS: BASOPHILS 0.4 % (0-2); EOSINOPHILS 1.5 % (0-7); HEMATOCRIT 33.7 % (36.0-48.0); HEMOGLOBIN 10.5 g/dL (12-16); LYMPHOCYTES 5.3 % (15-50); MCH 27.9 pg (26.0-34.0); MCHC 31.2 g/dL (31.0-37.0); MCV 89.4 fL (80.0-100.0); MONOCYTES 12.3 % (2-11); PLATELET COUNT 132 10x3/uL (130-400); RBC 3.77 10x6/uL (4.00-5.40); RDW 13.9 % (11.5-14.5); WBC 7.2 10x3/uL (4.8-10.8)
[2018-12-26 14:31] LABS: ANION GAP 11.3 mmol/L (8-16); CARBON DIOXIDE 27.5 mmol/L (21.0-32.0); POTASSIUM - SERUM 3.8 mmol/L (3.5-5.1)
[2018-12-27] VITALS (14 sets, daily range): BP systolic 106–131; BP diastolic 59–88
[2018-12-27 04:08] LABS: BASOPHILS 0.1 % (0-2); EOSINOPHILS 3.6 % (0-7); HEMATOCRIT 31.9 % (36.0-48.0); HEMOGLOBIN 9.8 g/dL (12-16); IMMATURE GRANULOCYTES 0.7 % (0-5); LYMPHOCYTES 7.4 % (15-50); MCH 27.5 pg (26.0-34.0); MCHC 30.7 g/dL (31.0-37.0); MCV 89.4 fL (80.0-100.0); MEAN PLATELET VOLUME 9.7 fL (7.4-10.4); MONOCYTES 15.1 % (2-11); NEUTROPHILS 73.1 % (40-80); RBC 3.57 10x6/uL (4.00-5.40); RDW 13.8 % (11.5-14.5); WBC 7.2 10x3/uL (4.8-10.8)
[2018-12-27 04:11] LABS: PLATELET COUNT 173 10x3/uL (130-400)
[2018-12-27 04:32] LABS: ALBUMIN 1.8 g/dL (3.4-5.0); ALKALINE PHOSPHATASE 98 U/L (46-116); ALT (SGPT) 22 U/L (10-68); BILIRUBIN - TOTAL 0.43 mg/dL (0.2-1.3); CALC OSMOLALITY 289 mosm/kg (275-300); CALCIUM 7.8 mg/dL (8.5-10.1); CHLORIDE - SERUM 108 mmol/L (98-107); CREATININE - SERUM 0.8 mg/dL (0.6-1.3); GLUCOSE 141 mg/dL (74-106); POTASSIUM - SERUM 3.2 mmol/L (3.5-5.1); PRO BNP 4623 pg/mL (0-125); PROTEIN - SERUM 5.4 g/dL (6.4-8.2); SODIUM 144 mmol/L (136-145); UREA NITROGEN 15 mg/dL (7-18); eGFR NON AFRICAN AMERICAN 75 mL/min (90-120)
[2018-12-28 00:40] VITALS: BP 101/57
[2018-12-28 05:01] VITALS: BP 130/70
[2018-12-28 05:39] LABS: BASOPHILS 0.3 % (0-2); EOSINOPHILS 2.1 % (0-7); HEMATOCRIT 30.5 % (36.0-48.0); HEMOGLOBIN 9.6 g/dL (12-16); IMMATURE GRANULOCYTES 2.1 % (0-5); MCH 28.2 pg (26.0-34.0); MCHC 31.5 g/dL (31.0-37.0); MCV 89.7 fL (80.0-100.0); MEAN PLATELET VOLUME 9.3 fL (7.4-10.4); MONOCYTES 13.2 % (2-11); NEUTROPHILS 76.3 % (40-80); RDW 13.9 % (11.5-14.5)
[2018-12-28 05:49] LABS: PLATELET COUNT 224 10x3/uL (130-400); WBC 9.6 10x3/uL (4.8-10.8)
[2018-12-28 06:28] LABS: ALBUMIN 1.9 g/dL (3.4-5.0); ALKALINE PHOSPHATASE 97 U/L (46-116); ALT (SGPT) 20 U/L (10-68); BILIRUBIN - TOTAL 0.27 mg/dL (0.2-1.3); CALCIUM 7.5 mg/dL (8.5-10.1); CARBON DIOXIDE 26.8 mmol/L (21.0-32.0); CHLORIDE - SERUM 108 mmol/L (98-107); CREATININE - SERUM 0.7 mg/dL (0.6-1.3); POTASSIUM - SERUM 3.3 mmol/L (3.5-5.1); PROTEIN - SERUM 4.8 g/dL (6.4-8.2); SODIUM 145 mmol/L (136-145); eGFR NON AFRICAN AMERICAN 88 mL/min (90-120)
[2018-12-28 06:30] LABS: CALC OSMOLALITY 283 mosm/kg (275-300); GLUCOSE 25 mg/dL (74-106); UREA NITROGEN 11 mg/dL (7-18)
[2018-12-28 08:46] VITALS: BP 108/48
[2018-12-28 13:10] VITALS: BP 109/55
[2018-12-28 16:00] VITALS: BP 97/53
[2018-12-28 20:00] VITALS: BP 100/54
[2018-12-29 04:00] VITALS: BP 106/42
[2018-12-29 04:51] LABS: BASOPHILS 0.1 % (0-2); EOSINOPHILS 2.6 % (0-7); HEMOGLOBIN 9.5 g/dL (12-16); LYMPHOCYTES 8.5 % (15-50); MCH 28.1 pg (26.0-34.0); MCHC 31.7 g/dL (31.0-37.0); MCV 88.8 fL (80.0-100.0); MEAN PLATELET VOLUME 9.6 fL (7.4-10.4); NEUTROPHILS 79.8 % (40-80); PLATELET COUNT 262 10x3/uL (130-400); RBC 3.38 10x6/uL (4.00-5.40); WBC 9.2 10x3/uL (4.8-10.8)
[2018-12-29 05:29] LABS: ALBUMIN 1.9 g/dL (3.4-5.0); ALKALINE PHOSPHATASE 90 U/L (46-116); ALT (SGPT) 19 U/L (10-68); CALCIUM 7.7 mg/dL (8.5-10.1); CARBON DIOXIDE 26.1 mmol/L (21.0-32.0); CHLORIDE - SERUM 105 mmol/L (98-107); CREATININE - SERUM 0.7 mg/dL (0.6-1.3); MAGNESIUM - SERUM 2.1 mg/dL (1.8-2.4); PROTEIN - SERUM 5.5 g/dL (6.4-8.2); SODIUM 140 mmol/L (136-145); UREA NITROGEN 9 mg/dL (7-18); eGFR NON AFRICAN AMERICAN 88 mL/min (90-120)
[2018-12-29 05:32] LABS: CALC OSMOLALITY 279 mosm/kg (275-300); GLUCOSE 134 mg/dL (74-106); POTASSIUM - SERUM 3.6 mmol/L (3.5-5.1)
[2018-12-29 08:53] VITALS: BP 96/50
[2018-12-29 15:44] VITALS: BP 99/54
[2018-12-29 17:10] LABS: AEROBE ID Final report (())
[2018-12-29 20:00] VITALS: BP 95/41
[2018-12-30 05:15] VITALS: BP 111/70
[2018-12-30 05:28] LABS: BASOPHILS 0.2 % (0-2); EOSINOPHILS 1.6 % (0-7); HEMATOCRIT 30.2 % (36.0-48.0); HEMOGLOBIN 9.3 g/dL (12-16); IMMATURE GRANULOCYTES 3.5 % (0-5); LYMPHOCYTES 8.7 % (15-50); MCH 27.8 pg (26.0-34.0); MCHC 30.8 g/dL (31.0-37.0); MCV 90.1 fL (80.0-100.0); MEAN PLATELET VOLUME 9.1 fL (7.4-10.4); MONOCYTES 7.6 % (2-11); NEUTROPHILS 78.4 % (40-80); PLATELET COUNT 299 10x3/uL (130-400); RBC 3.35 10x6/uL (4.00-5.40); RDW 14.1 % (11.5-14.5)
[2018-12-30 06:04] LABS: ALBUMIN 1.7 g/dL (3.4-5.0); ANION GAP 12.8 mmol/L (8-16); BILIRUBIN - TOTAL 0.28 mg/dL (0.2-1.3); CALCIUM 7.8 mg/dL (8.5-10.1); CARBON DIOXIDE 27.1 mmol/L (21.0-32.0); CREATININE - SERUM 0.9 mg/dL (0.6-1.3); POTASSIUM - SERUM 3.9 mmol/L (3.5-5.1); PROTEIN - SERUM 5.2 g/dL (6.4-8.2)
[2018-12-30 08:02] VITALS: BP 109/59
[2018-12-30 12:20] VITALS: BP 107/51
[2018-12-30 15:18] VITALS: BP 109/61
[2018-12-30 20:00] VITALS: BP 96/52
[2018-12-31] VITALS: BP 94/48
[2018-12-31 04:00] VITALS: BP 109/58
[2018-12-31 05:38] LABS: BASOPHILS 0.2 % (0-2); EOSINOPHILS 2.2 % (0-7); HEMATOCRIT 29.5 % (36.0-48.0); HEMOGLOBIN 9.2 g/dL (12-16); IMMATURE GRANULOCYTES 4.1 % (0-5); LYMPHOCYTES 12.9 % (15-50); MCHC 31.2 g/dL (31.0-37.0); MCV 89.9 fL (80.0-100.0); MEAN PLATELET VOLUME 8.9 fL (7.4-10.4); MONOCYTES 7.3 % (2-11); NEUTROPHILS 73.3 % (40-80); PLATELET COUNT 354 10x3/uL (130-400); RBC 3.28 10x6/uL (4.00-5.40); RDW 13.9 % (11.5-14.5); WBC 8.8 10x3/uL (4.8-10.8)
[2018-12-31 06:10] LABS: ALBUMIN 1.9 g/dL (3.4-5.0); ALKALINE PHOSPHATASE 84 U/L (46-116); BILIRUBIN - TOTAL 0.24 mg/dL (0.2-1.3); CALCIUM 7.9 mg/dL (8.5-10.1); CARBON DIOXIDE 27.3 mmol/L (21.0-32.0); CHLORIDE - SERUM 105 mmol/L (98-107); CREATININE - SERUM 0.8 mg/dL (0.6-1.3); PROTEIN - SERUM 5.4 g/dL (6.4-8.2); SODIUM 142 mmol/L (136-145); eGFR NON AFRICAN AMERICAN 75 mL/min (90-120)
[2018-12-31 06:14] LABS: ALT (SGPT) 19 U/L (10-68); CALC OSMOLALITY 279 mosm/kg (275-300); GLUCOSE 66 mg/dL (74-106); POTASSIUM - SERUM 3.3 mmol/L (3.5-5.1); UREA NITROGEN 10 mg/dL (7-18)
[2018-12-31 08:58] VITALS: BP 128/54
[2018-12-31 11:55] VITALS: BP 110/41
[2018-12-31 15:55] VITALS: BP 92/44
[2018-12-31 20:00] VITALS: BP 88/41
[2019-01-01] VITALS: BP 94/46
[2019-01-01 04:00] VITALS: BP 109/55
[2019-01-01 05:57] LABS: BASOPHILS 0.2 % (0-2); EOSINOPHILS 1.6 % (0-7); HEMATOCRIT 30.1 % (36.0-48.0); HEMOGLOBIN 9.3 g/dL (12-16); IMMATURE GRANULOCYTES 4.4 % (0-5); LYMPHOCYTES 11.3 % (15-50); MCH 27.8 pg (26.0-34.0); MCHC 30.9 g/dL (31.0-37.0); MCV 89.9 fL (80.0-100.0); MEAN PLATELET VOLUME 8.9 fL (7.4-10.4); MONOCYTES 6.5 % (2-11); PLATELET COUNT 379 10x3/uL (130-400); RBC 3.35 10x6/uL (4.00-5.40); RDW 14.6 % (11.5-14.5); WBC 9.4 10x3/uL (4.8-10.8)
[2019-01-01 06:02] LABS: ANION GAP 10.2 mmol/L (8-16); CALCIUM 7.6 mg/dL (8.5-10.1); CARBON DIOXIDE 27.2 mmol/L (21.0-32.0); CREATININE - SERUM 0.9 mg/dL (0.6-1.3); POTASSIUM - SERUM 4.4 mmol/L (3.5-5.1)
[2019-01-01] MEDS ORDERED: LOPRESSOR25 MG PO (07:52)
[2019-01-01] MEDS ORDERED: LEVAQUIN750 MG PO (07:52)
[2019-01-01] MEDS ORDERED: LIPITOR40 MG PO (07:54)
[2019-01-01 08:02] VITALS: BP 117/63
--- NOTE | 2019-01-01 10:45 | MORECARE ---
CASE MANAGEMENT DISCHARGE SUMMARY PATIENT: VENANCIO CONDE UNIT: [id number] ADM DATE: 12/21/18 AGE: 68 : [birth year] SEX: F ROOM/BED: D.5531 AUTHOR: ANGELA STERLING PHYSICIAN: REFERRING PHYSICIAN: CANDACE NEWBERRY MD DATE OF SERVICE: 01/01/19 Discharge Plan Patient Name: VENANCIO CONDE Facility: [facility]:[place] : 1950 Planned Disposition: Home with Home Health Anticipated Discharge Date: 01/01/19 Discharge Date: Expected LOS: 11 Initial Reviewer: [email or web address] Initial Review Date: 12/21/2018 Generated: 01/01/19 11:45 am DCP- Discharge Planning Updated by [email or web address]: Michelle Prescott on 12/21/18 4:[address] Patient Name: VENANCIO CONDE Admission Status: ER Accout number: [id number] Admission Date: 12-21-2018 : 1950 Admission Diagnosis: Attending: CANDACE NEWBERRY Current LOS: 1 Anticipated DC Date: 12-26-2018 Planned Disposition: Home Hlth Svc w Plan Readm Primary Insurance: MEDICARE A & B Discharge Planning Comments: CM met with patient who is disoriented and her and Eyad ANDERSEN to complete initial dc planning assessment. CM educated him on the CM role and verbal consent given by him to complete assessment. Patient lives at home with her who is her primary caregiver. 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 He is not able to leave her alone and provides 24/7 care for her. He went out of town Saturday and took her [facility] a [facility] care [facility] her. When he got there this morning to pick her up he reports she was hunched over in her wheelchair and he knew she was in trouble. The caregiver at the home reports she had gotten in to some pastries and ate a lot of them before they realized it. She was found in to be in DKA in the ER and admitted to the ICU. At discharge he plans to take the patient home and feels this is a safe discharge. She has [facility] at home as well. He reports he is not interested in her going to any type of rehab facility as they don't monitor her or give her the medications she requires on time and she always ends up in trouble with her diabetes under other people's care. He denied known discharge needs at this time. CM will continue to follow and will assist as needed with dc plans/needs. Water Purifier: Michelle Prescott RN, [facility] DCPIA - Discharge Planning Initial Assessment Updated by [email or web address]: Michelle Prescott on 12/21/18 5:48 pm * Is the patient Alert and Oriented? No * PCP Dr. Bryan * Pharmacy [facility] on [address] * Preadmission Environment Home with Family * ADLs Partial Dependent * Partial ADLs (Assistance needed) Ambulation Bathing Dressing Medication Management Toileting Transfers * Equipment Bedside Commode Cane Glucometer Rolling Walker Wheelchair * List name and contact numbers for known caregivers / representatives who currently or will assist patient after discharge: Robjohanna Conde - [facility] POA - [phone] * Verbal permission to speak to the caregivers and representatives has been obtained from the patient. Yes * Community resources currently utilized Home Health * Please name any agencies selected above. [facility] * Additional services required to return to the preadmission environment? No * Can the patient safely return to the preadmission environment? Yes * Has this patient been hospitalized within the prior 30 days at any hospital? No External Providers [facility] Next Contact Date: 01/01/2019 Service Request Date: Service Type: Resolution: Reviewer: Comments: Last DP export: 12/21/18 5:01 p Patient Name: VENANCIO CONDE Page [id number] at 1045 All edits/amendments must be made on the electronic document DICTATION DATE: 01/01/19 1044 MANAGER HUMAN RESOURCES: DM 01/01/19 1044 RPT#: [id number] DC DATE: STATUS: ADM IN [facility] [address] [place] [address] END OF REPORT
--- NOTE | 2019-01-01 10:55 | MORECARE ---
CASE MANAGEMENT DISCHARGE SUMMARY PATIENT: VENANCIO CONDE UNIT: [id number] ADM DATE: 12/21/18 AGE: 68 : 46 SEX: F ROOM/BED: D.2 AUTHOR: ANGELA STERLING PHYSICIAN: REFERRING PHYSICIAN: CANDACE NEWBERRY MD DATE OF SERVICE: 01/01/19 Discharge Plan Patient Name: VENANCIO CONDE Facility: [facility]:[place] : 1950 Planned Disposition: Home with Home Health Anticipated Discharge Date: 01/01/19 Discharge Date: Expected LOS: 11 Initial Reviewer: [email or web address] Initial Review Date: 12/21/2018 Generated: 01/01/19 11:55 am Comments DCP- Discharge Planning Updated by [id number]: Hardy Bush on 01/01/19 9:[address] Patient Name: VENANCIO CONDE Encounter No: [id number] : 1950 Primary Insurance: MEDICARE A & B Anticipated DC Date: 01-01-2019 Planned Disposition: Home with Home Health External Planned Provider: [facility] DCP follow-up note: CM MET WITH PT AND SPOUSE IN ROOM TO DISCUSS DISCHARGE NEEDS AND PLANNING. VENANCIO CONDE provided verbal consent to discuss current and ongoing needs with/in the presence of:, SPOUSE, JACKY. CM DISCUSSED AVAILABILITY OF HOME HEALTH, REHAB SERVICES AND MEDICAL EQUIPMENT. PT'S SPOUSE DENIES DISCHARGE NEEDS OTHER THAN RESUMPTION OF HOME HEALTH WITH [facility]. SPOUSE TO TRANSPORT HOME AT DISCHARGE TODAY. IMPORTANT MESSAGE FROM MEDICARE PROVIDED AND EXPLAINED. CM CALLED [facility], , SPOKE TO [place], REFERRAL PROVIDED, PT PLACED ON SCHEDULE FORRESUMPTION. CM FAXED REFERRAL AND DISCHARGE INFORMATION TO [facility] AT [phone]. ACTIONSCRIPT DEVELOPER NURSE NOTIFIED. ARMAIN Freitas DCP- Discharge Planning Updated by [id number]: Michelle Prescott on 12/21/18 4:[address] Patient Name: VENANCIO CONDE Admission Status: ER Accout number: [id number] Admission Date: 12-21-2018 : 1950 Admission Diagnosis: Attending: CANDACE NEWBERRY Current LOS: 1 Anticipated DC Date: 12-26-2018 Planned Disposition: Home Hlth Svc w Plan Readm Primary Insurance: MEDICARE A & B Discharge Planning Comments: CM met with patient who is disoriented and her and Jacky ANDERSEN to complete initial dc planning assessment. CM educated him on the CM role and verbal consent given by him to complete assessment. Patient lives at home with her who is her primary caregiver. 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 He is not able to leave her alone and provides 24/ care for her. He went out of town Saturday and took her to a [place] [facility] [place] to care for her. When he got there this morning to pick her up he reports she was hunched over in her wheelchair and he knew she was in trouble. The caregiver at the home reports she had gotten in to some pastries and ate a lot of them before they realized it. She was found in to be in DKA in the ER and admitted to the ICU. At discharge he plans to take the patient home and feels this is a safe discharge. She has [facility] at home as well. He reports he is not interested in her going to any type of rehab facility as they don't monitor her or give her the medications she requires on time and she always ends up in trouble with her diabetes under other people's care. He denied known discharge needs at this time. CM will continue to follow and will assist as needed with dc plans/needs. Launchman: Michelle Prescott RN, [facility] DCPIA - Discharge Planning Initial Assessment Updated by [id number]: Michelle Prescott on 12/21/18 5:48 pm * Is the patient Alert and Oriented? No * PCP Dr. Bryan * Pharmacy [facility] on [address] * Preadmission Environment Home with Family * ADLs Partial Dependent * Partial ADLs (Assistance needed) Ambulation Bathing Dressing Medication Management Toileting Transfers * Equipment Bedside Commode Cane Glucometer Rolling Walker Wheelchair * List name and contact numbers for known caregivers / representatives who currently or will assist patient after discharge: Jacky Conde - spouse POA - [phone] * Verbal permission to speak to the caregivers and representatives has been obtained from the patient. Yes * Community resources currently utilized Home Health * Please name any agencies selected above. [facility] * Additional services required to return to the preadmission environment? No * Can the patient safely return to the preadmission environment? Yes * Has this patient been hospitalized within the prior 30 days at any hospital? No Coverage Notice Reviewer: [id number] Raad Bush Notice Issued Date-Time: 01/01/2019 9:30 Notice Type: IM Discharge Notice Notice Delivered To: Family Member Relationship to Patient: Spouse Hair Boiler Name: JACKY CONDE Delivery Method: HAND - Hand Delivered Naomie Days: Prior Verbal Notification: Recipient Understood Notice: Yes Recipient Signature: Yes Med Rec Note Co-signed by Attending: Coverage Notice Comment: Last DP export: 01/01/19 9:45 a Patient Name: VENANCIO CONDE Page [id number] at 1055 All edits/amendments must be made on the electronic document DICTATION DATE: 01/01/19 105 CHECK VIEWER: DARIO 01/01/19 1055 RPT#: [id number] DC DATE: STATUS: ADM IN [facility] [address] [place] [address] END OF REPORT
--- NOTE | 2019-01-02 12:11 | OP ---
PATIENT NAME: VENANCIO JIMENEZ MEDICAL RECORD: [id number] :[birth year] LOCATION:D.M2 D.2112 ADMISSION DATE:12/21/18 SURGEON: HUY ANGUIANO MD DATE OF OPERATION: 12/26/2018 DATE OF SERVICE: 12/26/2018 PROCEDURES: 1. PTCA stent of the RCA. 2. Left heart catheterization. 3. Selective coronary angiography. 4. Left ventriculogram. INDICATION: Angina and coronary artery disease. PROCEDURE IN DETAIL: After informed consent was obtained and after detailed description of risks, benefits as well as alternative therapies, the patient elected to proceed with angiogram and angioplasty. The right femoral area was prepped and draped in normal sterile fashion. Right femoral artery was cannulated via modified Seldinger technique with placement of 6-Faroese sheath. All catheters exchanged through this sheath. FINDINGS: Left ventriculogram was performed in standard 30-degree GARBER view, reveals preserved cardiac wall motion, ejection fraction 50%. SELECTIVE CORONARY ANGIOGRAPHY: 1. Left main has no significant angiographic disease. 2. Left anterior descending has 80% stenosis proximally. There is an LAD diagonal it is 95% stenosis. 3. The left circumflex has moderate irregularities, but no flow-limiting stenosis. 4. Right coronary has 99% stenosis in mid vessel. PTCA STENT OF THE RIGHT CORONARY: Stents used were 2.5 x 33 and 2.75 x 18, both Integrity stents. Result was 0% residual stenosis. OVERALL IMPRESSION: Successful percutaneous transluminal coronary angioplasty stent of the right coronary artery going from 99% initial stenosis to 0% residual. PLAN: For PTCA stent of the LAD in the near future. TRANSINT:[id number] Voice Confirmation ID: [id number] DOCUMENT ID: [id number] HUY ANGUIANO MD at 1211 CC: [id number] DICTATION DATE: 12/26/18 1557 GENERAL LABOR: 12/26/182009 DIS IN 01/01/[address] [address]
== END 2019-01-01 11:27 | disposition home health service (06) | DRG 246 ==
LOC: D.ER 14:25 → D.EDHOLD 16:27 → D.M2 16:27 → D.ICU 16:27 → D.MS 12-27 18:15 → D.M2 12-29 12:39
PROVIDERS: Emergency Medicine; Family Medicine; Internal Medicine Interventional Cardiology; ADMIT Internal Medicine Nephrology
PROC: 4A023N7 Measurement of Cardiac Sampling and Pressure, Left Heart, Percutaneous Approach (ICD-10-PCS; 2018-12-26)
PROC: B2111ZZ Fluoroscopy of Multiple Coronary Arteries using Low Osmolar Contrast (ICD-10-PCS; 2018-12-26)
PROC: B2151ZZ Fluoroscopy of Left Heart using Low Osmolar Contrast (ICD-10-PCS; 2018-12-26)
PROC: 02703EZ Dilation of Coronary Artery, One Artery with Two Intraluminal Devices, Percutaneous Approach (ICD-10-PCS; 2018-12-26 14:30)
PROC: 027035Z Dilation of Coronary Artery, One Artery with Two Drug-eluting Intraluminal Devices, Percutaneous Approach (ICD-10-PCS; principal; 2018-12-29 11:25)
DX: I21.4 Non-ST elevation (NSTEMI) myocardial infarction (principal); E11.10 Type 2 diabetes mellitus with ketoacidosis without coma; G92 Toxic encephalopathy; E87.0 Hyperosmolality and hypernatremia; E87.2 Acidosis; N39.0 Urinary tract infection, site not specified; N17.9 Acute kidney failure, unspecified; E11.22 Type 2 diabetes mellitus with diabetic chronic kidney disease; N18.9 Chronic kidney disease, unspecified; E86.0 Dehydration; E11.65 Type 2 diabetes mellitus with hyperglycemia; E87.5 Hyperkalemia; F01.50 Vascular dementia, unspecified severity, without behavioral disturbance, psychotic disturbance, mood disturbance, and anxiety; E03.9 Hypothyroidism, unspecified; D50.9 Iron deficiency anemia, unspecified; J43.9 Emphysema, unspecified; B37.9 Candidiasis, unspecified; F32.9 Major depressive disorder, single episode, unspecified; I25.10 Atherosclerotic heart disease of native coronary artery without angina pectoris